=== PATIENT | male | born 1930 | race Asian ===

== ENCOUNTER → 2016-06-14 | Outpatient (CLI) | payer MEDICARE, OTHER ==
[~2016-06-14] MED LIST: AMLO-512 PO; CETI-260 PO; CIPR-278 PO; DIPH50 PO; FLUT16H NASAL; HEPARIN SODIUM 1000 UNITS/NS 500 ML ONE; IOHEXOL 180 MG/ML 20 ML VIAL ONE; TAMS0.4C32 PO; TERA2CAP4 PO
== END | disposition home or self-care (01) ==
LOC: RADMN 07:47
PROVIDERS: ATTEND Urology
DX: Z96.0 Presence of urogenital implants (principal); N20.1 Calculus of ureter
CPT/HCPCS: 75984; J1644; Q9965

== ENCOUNTER 2016-06-17 09:57 | Emergency (ER) | payer MEDICARE, OTHER ==
[~2016-06-17] VITALS: Ht 165.1 cm; Wt 69.1 kg
[~2016-06-17 09:57] MED LIST changes: -HEPARIN SODIUM 1000 UNITS/NS 500 ML ONE; -IOHEXOL 180 MG/ML 20 ML VIAL ONE
[2016-06-17 10:14] VITALS: BP 144/85
== END 2016-06-17 11:25 | disposition home or self-care (01) ==
LOC: EMS 09:58
DX: N32.0 Bladder-neck obstruction (principal); C61 Malignant neoplasm of prostate; I50.9 Heart failure, unspecified; Z87.891 Personal history of nicotine dependence
CPT/HCPCS: 99281; 99283

== ENCOUNTER → 2016-08-09 | Outpatient (CLI) | payer MEDICARE, OTHER ==
[~2016-08-09] MED LIST changes: -CIPR-278 PO; -DIPH50 PO
== END | disposition home or self-care (01) ==
LOC: RADPV 09:28
PROVIDERS: ATTEND Internal Medicine
DX: J98.11 Atelectasis (principal); J90 Pleural effusion, not elsewhere classified; I51.7 Cardiomegaly; R07.89 Other chest pain
CPT/HCPCS: 71020

== ENCOUNTER 2016-08-12 10:28 | Emergency (ER) | payer MEDICARE, OTHER ==
[~2016-08-12] VITALS: Ht 167.6 cm; Wt 63.6 kg
[2016-08-12 10:46] VITALS: BP 125/74
== END 2016-08-12 12:54 | disposition home or self-care (01) ==
LOC: EMS 10:31
DX: J90 Pleural effusion, not elsewhere classified (principal); I50.9 Heart failure, unspecified; Z87.891 Personal history of nicotine dependence; Z85.46 Personal history of malignant neoplasm of prostate
CPT/HCPCS: 93005; 99283

== ENCOUNTER → 2016-08-14 | Outpatient (CLI) | payer MEDICARE, OTHER ==
[2016-08-14 11:51] LABS: BASOPHILS % (AUTO) 0.3 % (0.0-2.0); EOSINOPHILS % (AUTO) 4.8 % (1.0-6.0); HEMATOCRIT 32.3 % (41-53); HEMOGLOBIN 10.5 g/dL (13.5-17.5); LYMPHOCYTES % (AUTO) 10.5 % (22.0-44.0); MEAN CORPUSCULAR HEMOGLOBIN 28.9 pg (26.0-34.0); MEAN CORPUSCULAR HGB CONC 32.6 G/dL (31.0-37.0); MEAN CORPUSCULAR VOLUME 89 fL (80-100); MONOCYTES % (AUTO) 10.4 % (2.0-9.0); NEUTROPHILS # (AUTO) 6.9 K/uL (1.8-7.7); PLATELET COUNT (AUTO) 335 K/uL (150-450); RED BLOOD CELL COUNT(AUTO) 3.64 MIL/uL (4.50-5.90); RED CELL DISTRIBUTION WIDTH 15.9 % (11.5-14.5); WHITE BLOOD COUNT (AUTO) 9.3 K/uL (4.5-11.0)
[2016-08-14 12:02] LABS: ALBUMIN 2.5 g/dL (3.4-5.0); BILIRUBIN,TOTAL 0.4 mg/dL (0.1-1.0); CALCIUM, TOTAL 8.1 mg/dL (8.8-10.5); CREATININE 1.23 mg/dL (0.60-1.30); POTASSIUM 3.8 mmol/L (3.5-5.1); TOTAL PROTEIN, SERUM 7.4 g/dL (6.4-8.2)
== END | disposition home or self-care (01) ==
LOC: LABPV 09:08
PROVIDERS: ATTEND Internal Medicine
DX: I10 Essential (primary) hypertension (principal)

== ENCOUNTER → 2016-08-15 | Outpatient (CLI) | payer MEDICARE, OTHER ==
[~2016-08-15] MED LIST changes: +IOVERSOL 350 MG/ML 100 ML VIAL ONE
== END | disposition home or self-care (01) ==
LOC: RADMN 08:22
PROVIDERS: ATTEND Internal Medicine
DX: J43.2 Centrilobular emphysema (principal); J42 Unspecified chronic bronchitis; I51.7 Cardiomegaly; I70.0 Atherosclerosis of aorta; E04.2 Nontoxic multinodular goiter; J98.4 Other disorders of lung; I25.10 Atherosclerotic heart disease of native coronary artery without angina pectoris; M53.84 Other specified dorsopathies, thoracic region; R91.8 Other nonspecific abnormal finding of lung field
CPT/HCPCS: 71260; Q9967

== ENCOUNTER → 2016-09-03 | Outpatient (CLI) | payer MEDICARE, OTHER ==
[~2016-09-03] MED LIST changes: -IOVERSOL 350 MG/ML 100 ML VIAL ONE
== END | disposition home or self-care (01) ==
LOC: RADPV 12:39
PROVIDERS: ATTEND Physician Assistant
DX: N20.1 Calculus of ureter (principal); N40.0 Benign prostatic hyperplasia without lower urinary tract symptoms
CPT/HCPCS: 74000; 76770

== ENCOUNTER → 2016-09-13 | Outpatient (CLI) | payer MEDICARE, OTHER ==
[2016-09-20 18:35] LABS: COCCIDIOIDES BY CF(UCDAVIS) Negative; COCCIDIOIDES INTERP.(UCDAVIS) Comment:
== END | disposition home or self-care (01) ==
LOC: LABPV 10:41
PROVIDERS: ATTEND Internal Medicine Pulmonary Disease
DX: J15.9 Unspecified bacterial pneumonia (principal); J98.4 Other disorders of lung
CPT/HCPCS: 86171; 86480

== ENCOUNTER → 2016-09-24 | Outpatient (CLI) | payer MEDICARE, OTHER ==
[~2016-09-24] MED LIST changes: +IOVERSOL 350 MG/ML 100 ML VIAL ONE
== END | disposition home or self-care (01) ==
LOC: RADMN 09:02
PROVIDERS: ATTEND Internal Medicine
DX: N40.0 Benign prostatic hyperplasia without lower urinary tract symptoms (principal); I25.10 Atherosclerotic heart disease of native coronary artery without angina pectoris; I70.0 Atherosclerosis of aorta; N30.90 Cystitis, unspecified without hematuria; M62.89 Other specified disorders of muscle; R59.0 Localized enlarged lymph nodes; Z85.46 Personal history of malignant neoplasm of prostate; R91.8 Other nonspecific abnormal finding of lung field; J90 Pleural effusion, not elsewhere classified
CPT/HCPCS: 74177; Q9967

== ENCOUNTER 2016-10-04 06:00 | Day surgery (SDC) | payer MEDICARE, OTHER ==
[~2016-10-04] VITALS: Ht 162.6 cm; Wt 68.2 kg
[~2016-10-04 06:00] MED LIST changes: -IOVERSOL 350 MG/ML 100 ML VIAL ONE
[2016-10-04] MEDS ORDERED: SODIUM CHLORIDE 0.9% 1,000 ML IV ONE ×2 (06:15→06:31)
[2016-10-04] MEDS ORDERED: FentaNYL CITRATE-PF 100 MCG/2 ML VIAL ONE (07:48)
[2016-10-04] MEDS ORDERED: MIDAZOLAM HCL 2 MG/2 ML VIAL ONE (07:48)
[2016-10-04] MEDS ORDERED: MethylPREDNISolone SOD SUCC 125 MG/2 ML VIAL IVP ONE (08:45)
[2016-10-04] MEDS ORDERED: MethylPREDNISolone SOD SUCC 125 MG/2 ML VIAL ONE (09:29)
[2016-10-04] MEDS ORDERED: LIDOCAINE HCL 4% 50 ML SOLUTION TP ONE (16:59)
[2016-10-04] MEDS ORDERED: BENZOCAINE 20% 50 MCG/SPRAY 57 GM TP ONE (16:59)
[2016-10-04] MEDS ORDERED: LIDOCAINE HCL 2% 30 ML JELLY TP ONE (16:59)
[2016-10-04] MEDS ORDERED: GLYCOPYRROLATE 0.2 MG/ML VIAL IM ONE (16:59)
[2016-10-04] MEDS ORDERED: OXYGEN THERAPY IH SCH (20:00)
== END 2016-10-04 10:45 | disposition home or self-care (01) ==
LOC: SURGERY 06:00
PROVIDERS: ATTEND Internal Medicine Critical Care Medicine
DX: J38.4 Edema of larynx (principal); J39.8 Other specified diseases of upper respiratory tract; I10 Essential (primary) hypertension
CPT/HCPCS: 31623; 31624; 31625; 71010; 87015 ×2; 87070; 87101; 87147; 87205; 87220; 94640; J2250; J2930; J3010; J3490; J7030; 88108; 88305; 88312

== ENCOUNTER 2017-05-26 19:59 | Emergency (ER) | payer MEDICARE, OTHER ==
[~2017-05-26] VITALS: Ht 165.1 cm; Wt 73.6 kg
[~2017-05-26 19:59] MED LIST changes: -CETI-260 PO; +CETI-290 PO
[2017-05-26] MEDS: ACETAMINOPHEN 500 MG TABLET PO ONE (21:40)
[2017-05-26 22:26] VITALS: BP 123/64
== END 2017-05-26 22:43 | disposition home or self-care (01) ==
LOC: EMS 20:02
DX: S20.212A Contusion of left front wall of thorax, initial encounter (principal); I50.9 Heart failure, unspecified; Z87.891 Personal history of nicotine dependence; W19.XXXA Unspecified fall, initial encounter; Y93.89 Activity, other specified; Y92.89 Other specified places as the place of occurrence of the external cause; Y99.8 Other external cause status
CPT/HCPCS: 99283

== ENCOUNTER → 2017-06-09 | Outpatient (CLI) | payer MEDICARE, OTHER | END | disposition home or self-care (01) | LOC: RADPV 10:55 | PROVIDERS: ATTEND Internal Medicine | DX: I65.23 Occlusion and stenosis of bilateral carotid arteries (principal); R60.0 Localized edema | CPT/HCPCS: 93880; 93970 ==

== ENCOUNTER → 2017-06-24 | Outpatient (CLI) | payer MEDICARE, OTHER | END | disposition home or self-care (01) | LOC: LABPV 12:12 | PROVIDERS: ATTEND Physician Assistant | DX: C61 Malignant neoplasm of prostate (principal) | CPT/HCPCS: 84153; 84403 ==

== ENCOUNTER → 2017-08-26 | Outpatient (CLI) | payer MEDICARE, OTHER | END | disposition home or self-care (01) | LOC: RADPV 08:07 | PROVIDERS: ATTEND Internal Medicine | DX: J84.10 Pulmonary fibrosis, unspecified (principal); I50.22 Chronic systolic (congestive) heart failure | CPT/HCPCS: 71046 ==

== ENCOUNTER → 2017-11-10 | Outpatient (CLI) | payer MEDICARE, OTHER | END | disposition home or self-care (01) | LOC: LABPV 08:56 | PROVIDERS: ATTEND Physician Assistant | DX: C61 Malignant neoplasm of prostate (principal) | CPT/HCPCS: 84153; 84403 ==

== ENCOUNTER → 2017-12-16 | Outpatient (CLI) | payer MEDICARE, OTHER | END | disposition home or self-care (01) | LOC: RADPV 10:05 | PROVIDERS: ATTEND Internal Medicine | DX: I11.0 Hypertensive heart disease with heart failure (principal); I70.90 Unspecified atherosclerosis; I50.9 Heart failure, unspecified; K21.9 Gastro-esophageal reflux disease without esophagitis; Z87.891 Personal history of nicotine dependence; Z85.46 Personal history of malignant neoplasm of prostate ==

== ENCOUNTER → 2018-01-09 | Outpatient (CLI) | payer MEDICARE, OTHER | END | disposition home or self-care (01) | LOC: MSR 11:18 | PROVIDERS: ATTEND Internal Medicine | DX: M77.31 Calcaneal spur, right foot (principal); M77.32 Calcaneal spur, left foot; M20.11 Hallux valgus (acquired), right foot; E79.0 Hyperuricemia without signs of inflammatory arthritis and tophaceous disease | CPT/HCPCS: 84550 ==

== ENCOUNTER → 2018-01-13 | Outpatient (CLI) | payer MEDICARE, OTHER | END | disposition home or self-care (01) | LOC: RADPV 09:37 | PROVIDERS: ATTEND Internal Medicine | DX: M79.605 Pain in left leg (principal); I11.0 Hypertensive heart disease with heart failure; I50.9 Heart failure, unspecified | CPT/HCPCS: 93971 ==

== ENCOUNTER 2018-07-21 12:53 | Emergency (ER) | payer MEDICARE, OTHER ==
[~2018-07-21] VITALS: Ht 165.1 cm; Wt 76.4 kg
[~2018-07-21 12:53] MED LIST changes: -CETI-290 PO; +CETI10TA59 PO
[2018-07-21] MEDS ORDERED: LIDOCAINE 1% 10 ML VIAL INJ ONE (14:30)
[2018-07-21] MEDS ORDERED: BACITRACIN 0.9 GM PACKET OINTMENT TP ONE (17:15)
[2018-07-21 17:42] VITALS: BP 131/63
[2018-07-21 18:08] LABS: CALCIUM, TOTAL 9.4 mg/dL (8.8-10.5); CREATININE 1.35 mg/dL (0.60-1.30); POTASSIUM 4.2 mmol/L (3.5-5.1)
[2018-07-21 18:14] LABS: ALBUMIN 3.5 g/dL (3.4-5.0); BILIRUBIN,TOTAL 0.4 mg/dL (0.1-1.0); TOTAL PROTEIN, SERUM 7.5 g/dL (6.4-8.2)
[2018-07-21 18:15] LABS: HIV RAPID SCREEN NON-REACTIVE (NONREACTIVE)
[2018-07-21 19:23] LABS: RAPID PLASMA REAGIN NONREACTIVE (NONREACTIVE)
== END 2018-07-21 17:49 | disposition home or self-care (01) ==
LOC: EMS 12:54
DX: S31.22XA Laceration with foreign body of penis, initial encounter (principal); I50.9 Heart failure, unspecified; Z85.46 Personal history of malignant neoplasm of prostate; Z87.891 Personal history of nicotine dependence; W22.8XXA Striking against or struck by other objects, initial encounter; Y93.89 Activity, other specified; Y92.89 Other specified places as the place of occurrence of the external cause; Y99.8 Other external cause status
CPT/HCPCS: 12001; 36415; 80053; 86592; 86706; 86803; 87340; 99283; J3490

== ENCOUNTER 2018-07-23 09:22 | Emergency (ER) | payer MEDICARE, OTHER ==
[~2018-07-23] VITALS: Ht 165.1 cm; Wt 73.6 kg
[2018-07-23 10:23] VITALS: BP 156/86
== END 2018-07-23 10:44 | disposition home or self-care (01) ==
LOC: EMS 09:23
DX: S31.21XD Laceration without foreign body of penis, subsequent encounter (principal); I50.9 Heart failure, unspecified; Z85.46 Personal history of malignant neoplasm of prostate; Z87.891 Personal history of nicotine dependence; W22.8XXD Striking against or struck by other objects, subsequent encounter

== ENCOUNTER 2018-07-28 11:24 | Emergency (ER) | payer MEDICARE, OTHER ==
[~2018-07-28] VITALS: Ht 175.3 cm; Wt 68.2 kg
[2018-07-28 12:15] VITALS: BP 127/72
== END 2018-07-28 12:34 | disposition home or self-care (01) ==
LOC: EMS 11:24
DX: S31.21XD Laceration without foreign body of penis, subsequent encounter (principal); I11.0 Hypertensive heart disease with heart failure; I50.9 Heart failure, unspecified; Z85.46 Personal history of malignant neoplasm of prostate; Z87.891 Personal history of nicotine dependence; Z79.899 Other long term (current) drug therapy; Z48.02 Encounter for removal of sutures; X58.XXXD Exposure to other specified factors, subsequent encounter

== ENCOUNTER 2018-08-27 20:36 | Emergency (ER) | payer MEDICARE, OTHER ==
[~2018-08-27] VITALS: Ht 165.1 cm; Wt 72.7 kg
[2018-08-27] MEDS ORDERED: ACETAMINOPHEN 500 MG TABLET PO ONE (21:15)
[2018-08-27] MEDS ORDERED: LIDOCAINE 5% TRANSDERMAL PATCH TD ONE (21:15)
[2018-08-27 21:55] VITALS: BP 143/76
== END 2018-08-27 22:04 | disposition home or self-care (01) ==
LOC: EMS 20:37
DX: S29.012A Strain of muscle and tendon of back wall of thorax, initial encounter (principal); I50.9 Heart failure, unspecified; Z87.891 Personal history of nicotine dependence; Z85.46 Personal history of malignant neoplasm of prostate; X50.9XXA Other and unspecified overexertion or strenuous movements or postures, initial encounter; Y93.89 Activity, other specified; Y92.89 Other specified places as the place of occurrence of the external cause; Y99.8 Other external cause status

== ENCOUNTER 2018-09-05 11:33 | Emergency (ER) | payer MEDICARE, OTHER ==
[~2018-09-05] VITALS: Ht 167.6 cm; Wt 68.0 kg
[2018-09-05] MEDS ORDERED: MAGNESIUM HYDROXIDE SUSPENSION 30 ML UDCUP PO ONE (12:15)
[2018-09-05] MEDS ORDERED: SODIUM PHOS/SODIUM BIPHOS 133 ML ENEMA PR ONE (12:15)
[2018-09-05 12:21] LABS: BASOPHILS % (AUTO) 0.5 % (0.0-2.0); HEMATOCRIT 37.4 % (41-53); HEMOGLOBIN 12.3 g/dL (13.5-17.5); LYMPHOCYTES # (AUTO) 1.3 K/uL (1.0-4.8); LYMPHOCYTES % (AUTO) 22.2 % (22.0-44.0); MEAN CORPUSCULAR HEMOGLOBIN 30.5 pg (26.0-34.0); MEAN CORPUSCULAR HGB CONC 32.9 G/dL (31.0-37.0); MEAN CORPUSCULAR VOLUME 93 fL (80-100); MONOCYTES # (AUTO) 0.4 K/uL (0.1-1.0); NEUTROPHILS # (AUTO) 2.9 K/uL (1.8-7.7); NEUTROPHILS % (AUTO) 47.7 % (40.0-70.0); PLATELET COUNT (AUTO) 286 K/uL (150-450); RED BLOOD CELL COUNT(AUTO) 4.04 MIL/uL (4.50-5.90); RED CELL DISTRIBUTION WIDTH 13.8 % (11.5-14.5)
[2018-09-05 12:28] LABS: EOSINOPHILS % (AUTO) 22.6 % (1.0-6.0)
[2018-09-05 12:34] LABS: CALCIUM, TOTAL 8.6 mg/dL (8.8-10.5); CREATININE 1.26 mg/dL (0.60-1.30); POTASSIUM 4.4 mmol/L (3.5-5.1)
[2018-09-05 12:39] LABS: ALBUMIN 3.4 g/dL (3.4-5.0); BILIRUBIN,TOTAL 0.3 mg/dL (0.1-1.0); TOTAL PROTEIN, SERUM 7.8 g/dL (6.4-8.2)
[2018-09-05 14:02] VITALS: BP 139/88
== END 2018-09-05 14:30 | disposition home or self-care (01) ==
LOC: EMS 11:34
DX: K59.00 Constipation, unspecified (principal); I11.0 Hypertensive heart disease with heart failure; I50.9 Heart failure, unspecified; Z85.46 Personal history of malignant neoplasm of prostate
CPT/HCPCS: 74022